=== PATIENT | female | born 1985 | race Asian ===

== ENCOUNTER 2024-04-21 18:57 | Emergency (ER) | payer MEDICAID, SELFPAY ==
[2024-04-21 18:58] VITALS: BMI 24.7
[2024-04-21 19:22] VITALS: BP 149/94; PULSE 102; RESP 18; TEMP 36.7; O2SAT 98
--- NOTE | 2024-04-21 19:40 | EDNOTE_ITS ---
ED Eye Problem RME/HPI General Chief complaint: Eye Problems Stated complaint: TREE BRANCH POKED ME IN L EYE. @1700 Time Seen by Provider: 04/21/24 19:22 Arrival date/time: 04/21/24 18:57 38-year-old female reports with complaints of left eye irritation. Patient states a tree branch poked her in the left eye she has blurred vision and eye pain. Patient denies any loss of vision discharge from eye use of corrective lenses or headache. Patient states that she has not taken any medications for the injury Limitations: no limitations Related Data Previous Rx's ?Medication ?Instructions ?Recorded Aspirin/Acetaminophen/Caffeine 1 tab PO Q6HR PRN Headache #10 tabs 06/16/16 MIGRAINE * (EXCEDRIN MIGRAINE *) lorazepam 0.5 mg tablet 0.5 mg PO BID #6 tabs 06/16/16 hydrocodone 5 mg-acetaminophen 325 1 tab PO Q6H PRN headache #14 tabs 06/23/17 mg tablet sulfacetamide sodium 10 % eye drops 1 drp ophthalmic (eye) Q3H 7 days 04/21/24 #15 mL Allergies Allergy/AdvReac Type Severity Reaction Status Date / Time No Known Allergies Allergy Verified 04/21/24 19:00 Review of Systems Constitutional Constitutional: Denies headache(s) Eyes Eyes: Reports blurry vision, Reports irritation and Denies loss of vision ENT Ears, Nose, Mouth, and Throat: Denies headache(s) Integumentary/Breasts Skin/Breast: Denies erythema and Denies rash Neurologic Neurologic: Denies headache(s) and Denies loss of vision Hematologic/Lymphatic Hematologic/Lymphatic: Denies easy bleeding and Denies easy bruising Past Medical History Social History SMOKING STATUS: Never smoker ED Exam General Limitations: Present no limitations General appearance: Present alert and in no apparent distress Eye Eye exam: Present normal appearance, PERRL and EOMI; Absent nystagmus, periorbital swelling or periorbital tenderness Neurological Exam Neurological exam: Present alert, oriented X3 and CN II-XII intact Psychiatric Psychiatric exam: Present normal affect and normal mood Skin Skin exam: Present warm, dry, intact and normal color Course Quality Measures none Orders Category Date Time Status ED Eye Irrigation ONCE Care 04/21/24 19:38 Active Visual Acuity NOW Care 04/21/24 19:39 Active Headley Lamp to Bedside X1 Care 04/21/24 19:39 Completed Fluorescein Sodium [[id number]] Med 04/21/24 19:39 Discontinued 1 mg LEFT EYE X1 ONE Proparacaine Op Margaret 0.5% [Alcaine Op Margaret 0.5%] Med 04/21/24 19:39 Discontinued See Dose Instructions LEFT EYE X1 ONE Vital Signs Vital signs: Vital Signs Temperature 98.1 F 04/21/24 19:22 Pulse Rate 102 H 04/21/24 19:22 Respiratory Rate 18 04/21/24 19:22 Blood Pressure 149/94 H 04/21/24 19:22 Pulse Oximetry (%) 98 04/21/24 19:22 Oxygen Delivery Method Room Air 04/21/24 19:22 Procedures -ED Headley Lamp Exam Left eye: Flourescein uptake:: Yes Headley Lamp Findings: Corneal abrasion Eye Patient data External records reviewed:: None Clinical information provided by:: patient Social determinants that could affect healthcare access:: none Patient has the following chronic illnesses:: none How is presenting disease/condition affected by chronic disease/condition?: no chronic disease Evaluation data The following diagnostics were reviewed and interpreted by me:: other (specify) (none) Lab and/or radiology exams considered but not ordered:: none Interpretation Summary: n/a Medications / Prescriptions Medications or Prescriptions considered but not ordered:: none Medication administrations:: Medication Administration History Discontinued Medications Fluorescein Sodium (Fluorescein Sod 1 Mg Strp) 1 mg LEFT EYE X1 ONE Stop: 04/21/24 19:40 Proparacaine HCl (Proparacaine Op Margaret 0.5% 15 Ml Btl) 0 drop LEFT EYE X1 ONE Stop: 04/21/24 19:40 as above Consultations Consultation(s) initiated? (list below): No Diagnosis Eye Problem Differential Diagnosis: corneal abrasion, conjunctivitis and acute iritis Most likely diagnosis given after review of the tests above:: Corneal abrasion Admission Indicated Admission indicated?: not indicated Admission Request Was there a request for admission?: No Disposition Plan Disposition Plan: Discharge Discharge Attestation Discharge Attestation: The patient and all family members were given an opportunity to ask questions and understood the discharge instructions. Discharge instructions specifically effects, indications for sooner follow up or return to the emergency department, and the expected course of current diagnosis. Patient condition: Stable Discharge Plan Plan Patient Disposition: HOME (Self Care) Prescriptions/Referrals Prescriptions/Med Rec: New sulfacetamide sodium 10 % drops 1 drp ophthalmic (eye) Q3H 7 Days Qty: 15 0RF Rx Instructions: APPLY DURING AWAKE HOURS No Action Aspirin/Acetaminophen/Caffeine MIGRAINE * (EXCEDRIN MIGRAINE *) 1 TAB tablet 1 tab PO Q6HR PRN (Reason: Headache) Qty: 10 0RF lorazepam 0.5 MG tablet 0.5 mg PO BID Qty: 6 0RF hydrocodone-acetaminophen 5-325 mg tablet 1 tab PO Q6H MDD 4.tab PRN (Reason: headache) Qty: 14 0RF Problem List Clinical Impression: Abrasion of cornea, left Patient/Caregiver Discharge Instructions Discharge Activity: activity as tolerated Education Materials: ED Corneal Abrasion Additional Instructions: Take medication as directed during hours you are awake. Wear UV protection when outside during daylight hours you may use normal saline eye rinse solution for comfort do not use the saline directly after applying antibiotic drops as you may wash the antibiotics out weight approximately 20-30 minutes,? follow-up with your PCP in 24 hours Print Language: Arabic Stand Alone Forms: Mary Award Info., Patient Portal Info Letter
[2024-04-21] MEDS: FLUORESCEIN SOD 1 MG STRP LEFT EYE (21:28)
[2024-04-21] MEDS: PROPARACAINE OP SOL 0.5% 15 ML BTL LEFT EYE (21:29)
== END 2024-04-21 21:33 | disposition home or self-care (01) ==
LOC: SERX 23:01
PROVIDERS: Emergency Provider Emergency Medicine
DX: S05.02XA Injury of conjunctiva and corneal abrasion without foreign body, left eye, initial encounter (principal); W22.8XXA Striking against or struck by other objects, initial encounter
CPT/HCPCS: 99283